=== PATIENT | female | born 1950 | race Caucasian/White ===

== ENCOUNTER 2016-09-19 05:37 | Emergency (ER) | payer SELFPAY ==
[~2016-09-19] VITALS: Ht 160 cm; Wt 84.1 kg
[2016-09-19 05:40] VITALS: BP 149/102; PULSE 86; RESP 18; O2SAT 95
--- NOTE | 2016-09-19 06:01 | ED.REPORT ---
HPI- Female Date of Service Sep 19, 2016 ED Provider: Mandie Queen MD The patient is a 66 year old female who presents to the emergency department complaining of UTI symptoms that began yesterday. She has experienced increased urinary frequency and blood in her urine. She started taking cranberry pills with minimal relief. This morning she woke up and noticed more blood in her urine. Over the last 2 days she has been more tired. Her current symptoms are similar to when she was previously diagnosed with a UTI. She denies fever, chills, abdominal pain, nausea or vomiting. The patient also mentions back pain but reports it is from a previous injury. Nursing Notes Stated Complaint: VAGINAL BLEEDING Chief Complaint: Female Abdominal Pain Nursing Notes Reviewed: Yes Allergies: Coded Allergies: Sulfa (Sulfonamide Antibiotics) (Verified Allergy, Unknown, 09/19/16) codeine (Verified Allergy, Unknown, 09/19/16) Scheduled Ciprofloxacin (Ciprofloxacin) 500 Mg Tablet 500 MG PO BID General Time Seen by MD: 06:00 Chief Complaint Blood in urine, Urinary frequency Hx Obtained From: Patient Arrived By: Walk-in Sudden in Onset?: No Onset Occurred: Yesterday Symptom Duration: Since onset Quality: Painful Severity: Current: Mild Severity: Maximum: Moderate Recent Healthcare: No recent doctor visit, No recent hospitalization Similar Sx Previous: Yes Past Medical History Family History Noncontributory Smoking History Unknown if Ever Smoker Social History Other Social History: Local resident Ambulatory Status Independent Review of Systems Constitutional: Reports: Fatigue, Denies: Chills, Fever GI: Denies: Abdominal pain, Nausea, Vomiting Female: Reports: Dysuria, Hematuria Musculoskeletal: Reports: Back pain (from recent injury) Complete sys rev & neg: except as marked. Physical Exam Initial Vital Signs Vital Signs (First) Date Time Temp Pulse Resp B/P Pulse Ox O2 Delivery O2 Flow Rate FiO2 09/19/16 05:40 36.2 86 18 149/102 95 Room Air Initial VS: Reviewed, Vital signs abnormal Head / Eyes: Atraumatic, Normocephalic, PERRL ENT: Mucous membranes moist, Conjunctiva normal, No scleral icterus Neck: Supple, Non-tender, Full range of motion Respiratory: Breath sounds normal, Clear to auscultation, No respiratory distress Cardiovascular: Regular rate & rhythm, Heart sounds normal, Intact distal pulses Abdomen / GI: Soft, Non-tender, No guarding, No rebound, No distention Back: No CVA tenderness Extremities: Vascular intact, Neuro intact, No swelling, No tenderness Skin: Warm, Dry, No cyanosis Neurologic: Alert, Oriented, Nonfocal Psychiatric: Mood/affect normal, Behavior normal, Normal thought content Female Genitourinary: Exam deferred General/Constitutional: Awake, Alert, Cooperative Interpretation & Diagnostics Lab Results Interpretation Test 09/19/16 06:00 Urine Color Yellow (YELLOW) Urine Appearance Cloudy (CLEAR,HAZY) Urine pH 6.0 (5.0-8.0) Urine Specific Leiter 1.010 (1.003-1.035) Urine Protein Tracemg/dL (NEG,TRACE) Urine Glucose (UA) Negativemg/dL (NEGATIVE) Urine Ketones Negativemg/dL (NEGATIVE) Urine Occult Blood Large (NEGATIVE) Urine Nitrite Negative (NEGATIVE) Urine Bilirubin Negative (NEGATIVE) Urine Urobilinogen Normalmg/dL (NORMAL) Urine Leukocyte Esterase Large (NEGATIVE) Urine RBC >50/hpf (0-2) Urine WBC Packed/hpf (0-5) Urine Epithelial Cells Occasional/hpf (NONE-MOD) Urine Crystals None seen (NONE SEEN) Urine Bacteria Few/hpf (NONE-FEW) Urine Hyaline Casts None/lpf (NONE) Urine Granular Casts None seen (NONE SEEN) Urine Waxy Casts None seen (NONE SEEN) Urine Red Blood Cell Casts None seen (NONE SEEN) Urine White Blood Cell Casts None seen (NONE SEEN) Urine Mucus None seen (None Seen) Urine Trichomonas None seen (NONE SEEN) Urine Yeast None (NONE SEEN) Urinalysis Comment None Urine Culture Reflexed Indicated Re-Eval/Medical Decision Med Decision/Clinical Course This patient has urinary symptoms and a urinary tract infection was confirmed on urinalysis. She is allergic to sulfa so was started on ciprofloxacin. There are no signs of systemic illness. Source of Hx: Old records Re-Evaluation/Progress : Time of Eval: 06:16 Re-Evaluation/Progress Note: Discussed results, diagnosis, and plan for discharge. All questions were addressed. Counseled Regarding: Diagnosis, Lab results, Need for follow-up, When/why to return to ED Discharge & Departure Impression: Primary Impression: Urinary tract infection Urinary tract infection type: site unspecified Hematuria presence: with hematuria Qualified Code: N39.0 - Urinary tract infection, site not specified Disposition: Home Discharge Condition All VS Reviewed: Yes Condition: Stable Patient Instructions: Urinary Tract Infection in Women (ED) Additional Instructions: Thank you for entrusting us with your care today. Your workup today included labs and a urinalysis. The results are consistent with a urinary tract infection. Take the antibiotic, Cipro as prescribed. You should be able to get the medication at [facility] for less than 10 dollars. Make sure to drink plenty of fluids. Followup with your regular doctor next week if your symptoms continue. Seek care if you develop a fever, vomiting, inability to urinate, or any other new or concerning symptoms. [employer] Attestation Portions of this note were transcribed by Tammy Palomares. I, Dr. Queen personally performed the history, physical exam and medical decision-making; I reviewed and confirmed the accuracy of the information in the transcribed note. Signed by: Michael Orellana, 09/19/2016 at 0630. Mandie Queen MD Sep 19, 2016 06:01 Tammy Palomares Sep 19, 2016 06:04
[2016-09-19 06:10] LABS: APPEARANCE,URINE CLOUDY (CLEAR,HAZY); COLOR,URINE YELLOW (YELLOW); OCCULT BLOOD,URINE LARGE (NEGATIVE); UROBILINOGEN,URINE NORMAL (NORMAL)
[2016-09-19] MEDS ORDERED: CIPR-198 PO (06:19)
== END 2016-09-19 06:28 | disposition home or self-care (01) ==
LOC: SED 05:37
DX: N39.0 Urinary tract infection, site not specified (principal); Z88.2 Allergy status to sulfonamides; Z88.5 Allergy status to narcotic agent